=== PATIENT | female | born 1980 | race American Indian/Alaskan Native ===

== ENCOUNTER 2019-04-03 09:48 | Observation (INO) | payer BC, OTHER ==
[2019-04-02 12:45] LABS: Hematocrit 27.8 % (30.3-42.9); Hemoglobin 8.4 gm/dl (10.1-14.3); Mean Corpuscular HGB Conc 30 % (30-34); Mean Corpuscular Volume 71 fl (79-97); Platelet Count 418 K/mm3 (140-440); Red Blood Count 3.94 M/mm3 (3.65-5.03); Red Cell Distribution Width 25.4 % (13.2-15.2)
--- NOTE | 2019-04-02 12:57 | Anesthesia Consultation ---
Anesthesia Consult and Med Hx Date of service: 04/03/19 - Airway Anesthetic Teeth Evaluation: Chipped ROM Head & Neck: Adequate Mental/Hyoid Distance: Adequate Mallampati Class: Class II Intubation Access Assessment: Good - Pre-Operative Health Status ASA Pre-Surgery Classification: ASA3 Proposed Anesthetic Plan: General - Cardiovascular System Hx Hypertension: Yes - Central Nervous System Hx Seizures: Yes (Single episode 3 yrs ago) Hx Psychiatric Problems: Yes (Anxiety/Depression) - Endocrine Hx Non-Insulin Dependent Diabetes: Yes (Borderline) - Hematic Hx Anemia: Yes (Has required two blood transfusions this month) Hx Sickle Cell Disease: No - Other Systems Hx Cancer: No Hx Obesity: Yes
[2019-04-02 13:32] LABS: Anisocytosis 2+; Hypochromasia 2+; Platelet Estimate Consistent w Auto; Total Cells Counted 100
--- NOTE | 2019-04-03 07:32 | History and Physical Report ---
History of Present Illness Date of examination: 04/03/19 Date of admission: 04/03/2019 Chief complaint: uterine fibroids and dysfunctional uterine bleeding History of present illness: 39y/o with a history of abnormal vaginal bleeding and uterine fibroids. Most recent ultrasound demonstrated an enlarged uterus of 15.7cm with the largest leiomyoma being 6.1cm and finding of a right ovarian cyst measuring 4cm. The patient has developed anemia secondary to her menorrhagia. She has elected for definitive surgical management. Past History Past Medical History: hypertension, other (leiomyoma) Past Surgical History: other (reduction mammoplasty) MANAGED CARE SPECIALIST History: fibroids Social history: - Obstetrical History : 5 Para: 3 Hx # Term Pregnancies: 3 Number of Pregnancies: 0 Spontaneous Abortions: 0 Induced : 2 Number of Living Children: 3 Medications and Allergies Allergies Allergy/AdvReac Type Severity Reaction Status Date / Time No Known Allergies Allergy Unverified 03/29/19 16:37 Home Medications Medication Instructions Recorded Confirmed Last Taken Type amLODIPine [Norvasc] 5 mg PO DAILY 07/21/14 03/29/19 Unknown History Active Meds: Active Medications Cefazolin Sodium (Ancef/Sterile Water 2 Gm/20 Ml) 2 gm in 20 mls @ 80 mls/hr IV PREOP NR; Protocol Sodium Chloride (Nacl 0.9% 500 Ml) 500 mls @ 0 mls/hr IV ONCE ONE Stop: 04/03/19 07:27 Review of Systems All systems: negative Genitourinary: vaginal bleeding, pelvic pain - Vital Signs Vital signs: Vital Signs Temp Pulse Resp BP Pulse Ox 98.6 F 77 20 147/83 100 04/02/19 12:20 04/02/19 12:20 04/02/19 12:20 04/02/19 12:20 04/02/19 12:20 Temp Pulse Resp BP Pulse Ox 98.6 F 77 20 147/83 100 04/02/19 12:20 04/02/19 12:20 04/02/19 12:20 04/02/19 12:20 04/02/19 12:20 - Physical Exam Breasts: Positive: deferred Cardiovascular: Regular rate Lungs: Positive: Clear to auscultation Abdomen: Positive: normal appearance Results Result Diagrams: 04/02/19 12:30 Abnormal lab results 04/02/19 Range/Units 12:30 Hgb 8.4 L (10.1-14.3) gm/dl Hct 27.8 L (30.3-42.9) % MCV 71 L (79-97) fl MCH 21 L (28-32) pg RDW 25.4 H (13.2-15.2) % Seg Neuts % (Manual) 75.0 H (40.0-70.0) % Basophils % (Manual) 2.0 H (0.0-1.8) % All other labs normal. Assessment and Plan - Patient Problems (1) Anemia Status: Acute Plan to address problem: patient is scheduled for a robotic hysterectomy and salpingectomy will transfuse prior to surgery (2) Leiomyoma Status: Acute (3) Dysfunctional uterine bleeding Status: Acute
[~2019-04-03 09:48] MED LIST: ANCEF/STERILE WATER 2 GM/20 ML 2 GM/20 ML SYRINGE IV NR; NACL 0.9% 500 ML 500 ML IV ONE
--- NOTE | 2019-04-03 09:57 | Anesthesia Day of Surgery ---
Anesthesia Day of Surgery - Day of Surgery Patient Examined: Yes Patient H&P Reviewed: Yes Patient is NPO: Yes
[2019-04-03] MEDS ORDERED: NACL 0.9% 1000 ML 1,000 ML ONE (10:08)
[2019-04-03] MEDS ORDERED: VERSED ONE (10:29)
[2019-04-03] MEDS ORDERED: SUBLIMAZE ONE (10:30)
[2019-04-03] MEDS ORDERED: XYLOCAINE 1% 20 mL ONE (10:31)
[2019-04-03] MEDS ORDERED: MARCAINE-EPI 0.5%-1:200,000 INFILTRATI ONE (10:31)
[2019-04-03] MEDS ORDERED: XYLOCAINE MPF 2% ONE (10:48)
[2019-04-03] MEDS ORDERED: DIPRIVAN 10 MG/ML IV ONE (10:48)
[2019-04-03] MEDS ORDERED: NACL 0.9% 500 ML 500 ML ONE (11:07)
[2019-04-03] MEDS ORDERED: NEOSPORIN GU IR ONE ×2 (14:38→14:58)
--- NOTE | 2019-04-03 16:52 | Operative Report ---
Operative Report Operative Report: Date of surgery: 04/03/2019 Preoperative diagnoses: Symptomatic uterine fibroids; menorrhagia; anemia Postoperative diagnoses: Same as above Procedure: Robotic hysterectomy; bilateral salpingectomy; Surgeon: Jailene Willoughby M.D. Personal Banking Advisor: Yolanda Mueller Anesthesia: Gen. endotracheal anesthesia Estimated blood loss: 250 mL Pathology: Uterus, cervix, leiomyomas, bilateral tubes Indication: 39-year-old with symptomatic uterine fibroids. The patient had evidence of multiple myomas and have a history of iron deficiency anemia. The patient was transfused 1 unit of packed red blood cells preoperatively. Procedure: The patient was taken to the operating room and given general endotracheal anesthesia without complication. She is prepped and draped in a normal sterile fashion. A bivalve speculum was placed in the patient's vagina and a single- tooth tenaculum placed on the anterior lip of the cervix. The uterus was sounded with the uterine sound. A AIS uterine manipulator was placed in the bivalve speculum was then removed. Attention was then turned to the patient's abdomen where a millimeter supra umbilical skin incision was then made. A Veress needle was placed and peritoneal entry was verified water-filled syringe. Insufflation of the peritoneal cavity was performed with CO2 gas. The 12 mm trocar was then placed under direct visualization. An additional 8 mm trocar was placed on the patient's left and right lateral side just opposite of the supraumbilical trocar. An additional 5 mm right lateral trocar was then placed as the accessory port. The patient was then placed in steep Trendelenburg. The da Devin robot was then engaged. General survey of the abdomen and pelvis revealed an enlarged uterus with multiple Leiomyomas. A fenestrated forcep was placed in arm 2 and a vessel sealer was placed in arm 1. The surgeon then transferred to the surgical console. The mesosalpinx was then isolated on the right. The vessel sealer was used to coagulate the mesosalpinx which was then transected. The tube was transected from the ovary. The tubo-ovarian ligament was then coagulated and transected. The round ligament was then coagulated and transected also. The vesicouterine peritoneum was then entered from the patient's right side. The uterine vessels were then coagulated with the vessel sealer. The vessels were then transected . Attention was then turned to the patient's left side where the tubo-ovarian ligament and mesosalpinx were again isolated coagulated and transected. The vesical peritoneum was then entered from the left and joined in the midline. Peritoneum was reflected off of the lower uterine segment. Uterine vessels were then coagulated and then transected. Secondary to the large size of the uterus myomectomy had to be performed with removal of 3 leiomyomas with the monopolar scissors. This procedure was performed in order to decompress the uterus. A supracervical hysterectomy was performed in order to improve visualization. a posterior colpotomy was made. The V care ring was visualized. Posterior colpotomy was created with the monopolar scissors. The incision was continued circumferentially until anterior colpotomy was made. The cervix and uterus were amputated from the vaginal cuff. The uterus was then removed along with the Leiomyomas, cervix, and tubes bilaterally through the vagina and a warm laparotomy sponge was placed and maintain the pneumoperitoneum. The vaginal cuff was then closed in a running fashion with V lock suture. Irrigation of the pelvis was performed. Hemoblast was applied to the incision. The supraumbilical 12 mm trocar site was closed with the Live Garcia device. The skin was then reapproximated with 4-0 Monocryl. The tissue was sent to pathology which included the cervix, uterine fibroids, bilateral tubes and uterus. The patient was then successfully extubated. She was then taken to the recovery room in stable condition. All sponge laps and needle counts were correct x2.
[2019-04-03] MEDS ORDERED: ZOFRAN IV PRN ×2 (17:19→19:22)
[2019-04-03] MEDS ORDERED: APRESOLINE IV ONE (17:30)
[2019-04-03] MEDS ORDERED: APRESOLINE ONE (17:31)
[2019-04-03] MEDS: DILAUDID IV PRN ×2 (17:45→17:55)
--- NOTE | 2019-04-03 17:47 | Post Anesthesia Evaluation ---
- Post Anesthesia Evaluation Patient Participated: Yes Airway Patent: Yes Stable Respiratory Function: Yes Nausea/Vomiting: No Temp > 96.8F: Yes Pain Manageable: Yes Adequeate Hydration: Yes Anesthesia Complications: No Block Receding Appropriately: Not Applicable Patient on Ventilator: No
[2019-04-03] MEDS ORDERED: AMBIEN PO PRN (19:22)
[2019-04-03] MEDS ORDERED: D5LR 1,000 ML IV SCH (19:22)
[2019-04-03] MEDS ORDERED: TYLENOL PO PRN (19:22)
[2019-04-03] MEDS ORDERED: IBUPROFEN PO PRN (19:22)
[2019-04-03] MEDS: MORPHINE IV PRN (20:10)
[2019-04-03] MEDS: TORADOL IV SCH (21:31)
[2019-04-04] MEDS: MORPHINE IV PRN (00:04)
[2019-04-04] MEDS: NORVASC PO SCH ×2 (00:15→10:33)
[2019-04-04] MEDS: TORADOL IV SCH (03:40)
[2019-04-04 05:16] LABS: Hematocrit 28.9 % (30.3-42.9); Hemoglobin 8.9 gm/dl (10.1-14.3)
[2019-04-04] MEDS: PERCOCET 5/325 PO PRN ×2 (07:40→13:39)
--- NOTE | 2019-04-04 08:16 | Progress Note ---
Assessment and Plan A: POD#1 s/p robotic hysterectomy; HTN P: Routine care. Discharge later today with follow up in [address] Willoughby. Subjective - Subjective Date of service: 04/04/19 Principal diagnosis: s/p robotic hysterectomy Interval history: Pt reports feeling well. No flatus. Patient reports: voiding normally, pain well controlled, ambulating normally, no flatus, no bowel movement Objective - Vital Signs Latest vital signs: Vital Signs Temp Pulse Pulse Resp BP BP Pulse Ox 04/04/19 04:10 18 04/04/19 03:40 18 04/04/19 03:39 98.2 F 18 164/86 04/04/19 00:34 18 04/04/19 00:15 98.6 F 94 H 20 162/86 04/04/19 00:04 18 04/03/19 23:09 98.6 F 94 H 20 162/86 100 04/03/19 22:01 18 04/03/19 21:31 109 H 18 154/89 100 04/03/19 21:17 90 18 04/03/19 20:40 18 04/03/19 20:10 18 04/03/19 20:03 98.2 F 104 H 18 161/89 100 04/03/19 18:48 97.7 F 104 H 22 169/89 04/03/19 18:33 103 H 22 169/89 100 04/03/19 18:15 96 H 20 155/86 100 04/03/19 18:00 97.1 F L 90 20 158/82 100 04/03/19 17:45 76 20 163/89 04/03/19 17:35 75 168/88 04/03/19 17:30 78 16 167/102 100 04/03/19 17:20 76 16 162/92 100 04/03/19 17:15 80 16 141/76 100 04/03/19 17:10 88 16 139/76 98 04/03/19 13:02 98.5 F 76 16 144/78 98 04/03/19 12:35 90 18 140/79 100 04/03/19 12:32 98.2 F 77 16 136/78 98 04/03/19 12:30 92 H 16 141/83 100 04/03/19 12:20 90 16 126/79 100 04/03/19 12:15 91 H 20 143/79 100 04/03/19 12:10 93 H 20 132/72 100 04/03/19 12:02 98.2 F 78 16 132/72 100 04/03/19 11:42 98.2 F 79 16 142/89 100 04/03/19 11:30 98.2 F 76 26 H 143/83 100 04/03/19 11:17 97.5 F L 75 21 142/90 100 04/03/19 10:10 98 F 72 20 158/78 99 04/03/19 10:00 98 F 72 20 158/78 99 Intake and Output 04/03/19 04/04/19 04/04/19 22:59 06:59 14:59 Intake Total 640 360 Output Total 700 2000 Balance -60 -1640 Intake: IV 400 Oral 240 360 Output: Urine 700 2000 Indwelling Catheter 400 2000 Other: Total, Intake Amount 240 120 Total, Output Amount 400 1200 Voiding Method Indwelling Catheter - Exam Breasts: Present: deferred Cardiovascular: Present: Regular rate Lungs: Present: Clear to auscultation Abdomen: Present: soft (obese ), abnormal bowel sounds (hypoactive bowel sounds ) Extremities: Present: edema (trace ) Incision: Present: intact (with skin glue ) - Labs Labs: Abnormal lab results 04/03/19 04/03/19 04/03/19 Range/Units 10:00 10:00 13:06 Hgb (10.1-14.3) gm/dl POC Hgb 9.5 L (12-17) Hct (30.3-42.9) % POC Hct 28 L (38-51) POC Potassium 2.9 L (3.5-4.9) Potassium 3.5 L (3.6-5.0) mmol/L POC BUN 6 L (8-26) mg/dl POC Glucose 114 H (70-105) Crossmatch See Detail 04/04/19 Range/Units 05:05 Hgb 8.9 L (10.1-14.3) gm/dl POC Hgb (12-17) Hct 28.9 L (30.3-42.9) % POC Hct (38-51) POC Potassium (3.5-4.9) Potassium (3.6-5.0) mmol/L POC BUN (8-26) mg/dl POC Glucose (70-105) Crossmatch
--- NOTE | 2019-04-04 08:23 | Discharge Summary ---
Providers - Providers Date of Admission: 04/03/19 16:57 Date of discharge: 04/04/19 Attending physician: JADE SWANSON Primary care physician: ESL PROFESSOR Hospitalization Reason for admission: other (hysterectomy ) Procedure details: Please see operative report Incision: intact Hospital course: Pt was admitted for robotic hysterectomy which she tolerated well. She received a unit of blood prior to her transfusion. She was observed until she met discharge criteria on POD#1. She will follow up in 1 wk with her primary care physician regarding her hypertension. She will follow up in [address] Swanson. Condition at discharge: Stable Disposition: TO HOME OR SELFCARE - Discharge Diagnoses (1) Hypertension Status: Acute (2) Anemia Status: Acute Qualifiers: Anemia type: unspecified type Qualified Code(s): D64.9 - Anemia, unspecified (3) Dysfunctional uterine bleeding Status: Acute (4) Leiomyoma Status: Acute Plan - Discharge Medications Prescriptions: Docusate Sodium [Colace] 100 mg PO BID PRN #60 capsule PRN Reason: Constipation Ferrous Sulfate [Feosol 325 MG tab] 325 mg PO BID #60 tablet Ibuprofen [Motrin] 800 mg PO Q8HR PRN #30 tablet PRN Reason: Pain, Moderate (4-6) oxyCODONE /ACETAMINOPHEN [Percocet 5/325] 1 tab PO Q6HR PRN #40 tablet PRN Reason: Pain - Provider Discharge Summary Activity: routine, no sex for 6 weeks, no heavy lifting 4 weeks, no strenuous exercise Diet: routine Instructions: routine Additional instructions: [] Smoking cessation referral if applicable(refer to patient education folder for contact #) [] Refer to [facility] Book[facility] Call your doctor immediately for: * Fever > 100.5 * Heavy vaginal bleeding ( >1 pad per hour) * Severe persistent headache * Shortness of breath * Reddened, hot, painful area to leg or breast * Drainage or odor from incision. * Keep incision clean and dry at all times and follow doctor's instructions regarding bathing/showering - Follow up plan Follow up: SHAYY FALCON MD [Primary Care Provider] - 7 Days GEORGE YBARRA MD [Staff Physician] - 05/01/19 (Please call for postoperative appt with Dr Swanson ) Forms: Work/School Excuse Out Patient
[2019-04-04 14:06] VITALS: BP 138/72
== END 2019-04-04 14:00 | disposition home or self-care (01) ==
LOC: OR 09:48 → OB 16:57
PROVIDERS: ADMIT Obstetrics & Gynecology; ATTEND Obstetrics & Gynecology
DX: D25.9 Leiomyoma of uterus, unspecified (principal); D64.9 Anemia, unspecified; N92.0 Excessive and frequent menstruation with regular cycle
CPT/HCPCS: 36415; 36430; 58554; 64450; 82803; 84132; 84703; 85007; 85014; 85018; 85025; 86850; 86900; 86901; 86920; 88307; 96374; 96375; 96376; G0378; J0360; J0690; J1170; J1885; J2250; J2270; J2405; J3010; J7030; J7040; J7121; P9016; S2900; J2704